=== PATIENT | female | born 1995 | race Caucasian/White ===

== ENCOUNTER 2017-03-11 21:33 | Emergency (ER) | payer SELFPAY ==
[2017-03-11 23:40] VITALS: BP 138/87
== END 2017-03-11 23:41 | disposition home or self-care (01) ==
LOC: ED 21:33
DX: S93.602A Unspecified sprain of left foot, initial encounter (principal); W06.XXXA Fall from bed, initial encounter; Y93.89 Activity, other specified; Y99.8 Other external cause status; Y92.89 Other specified places as the place of occurrence of the external cause

== ENCOUNTER 2018-10-12 17:34 | Emergency (ER) | payer MEDICAID ==
[~2018-10-12] VITALS: Ht 160 cm; Wt 95.7 kg
[2018-10-12 17:57] VITALS: Ht 160 cm; Wt 95.7 kg
[2018-10-12 19:07] VITALS: BP 139/89
== END 2018-10-12 19:07 | disposition home or self-care (01) ==
LOC: ED 17:34
DX: R51 Headache (principal); V43.52XA Car driver injured in collision with other type car in traffic accident, initial encounter; Y93.I9 Activity, other involving external motion; Y92.488 Other paved roadways as the place of occurrence of the external cause; Y99.8 Other external cause status
CPT/HCPCS: J0780; Q0162

== ENCOUNTER 2019-04-08 19:44 | Emergency (ER) | payer BC ==
[~2019-04-08] VITALS: Ht 157.5 cm; Wt 99.3 kg
[2019-04-08 19:49] VITALS: Ht 157.5 cm; Wt 99.3 kg
[2019-04-08 22:43] VITALS: BP 121/77
== END 2019-04-08 22:43 | disposition home or self-care (01) ==
LOC: ED 19:44
DX: G43.909 Migraine, unspecified, not intractable, without status migrainosus (principal)
CPT/HCPCS: J1885; J2765